=== PATIENT | male | born 1970 | race Caucasian/White ===

== ENCOUNTER → 2019-10-09 | Outpatient (REF) | payer OTHER ==
[2019-10-09 13:58] LABS: APPEARANCE, URINE HAZY (CLEAR); BACTERIA, URINE AUTO 1+ (NEGATIVE); BILIRUBIN, URINE AUTO NEGATIVE (NEGATIVE); BLOOD, URINE BLOOD NEGATIVE (NEGATIVE); CALCIUM OXALATE CRYSTALS SMALL; COLOR, URINE YELLOW (YELLOW); GLUCOSE, URINE (UA) AUTO 1+ mg/dL (NEGATIVE); KETONE, URINE AUTO NEGATIVE (NEGATIVE); LEUKOCYTE ESTERASE, URINE AUTO NEGATIVE (NEGATIVE); MUCUS, URINE SMALL (NEGATIVE); NITRITE, URINE AUTO NEGATIVE (NEGATIVE); PROTEIN, URINE AUTO NEGATIVE (NEGATIVE); RBC, URINE AUTO 3 /HPF (0-3); SPECIFIC GRAVITY URINE AUTO 1.021 (1.002-1.035); SQUAMOUS EPITHELIAL CELL UR AU 0 /HPF (0-6); WBC, URINE AUTO 1 /HPF (0-3)
== END ==
LOC: M SMT 13:03
PROVIDERS: ATTEND Nurse Practitioner Women's Health
DX: R31.9 Hematuria, unspecified (principal)
CPT/HCPCS: 81001; 87086; 88108; G0463

== ENCOUNTER → 2019-11-08 | Outpatient (REF) | payer OTHER | LOC: M SMT 13:01 | PROVIDERS: ATTEND Urology | DX: R31.9 Hematuria, unspecified (principal); R82.89 Other abnormal findings on cytological and histological examination of urine ==

== ENCOUNTER → 2020-12-10 | Outpatient (REF) ==
--- NOTE | 2020-12-10 13:29 | REP ---
INDICATION: DDD COMPARISON: None. TECHNIQUE: AP, lateral, bilateral oblique views of the left elbow. FINDINGS: No evidence for acute fracture or dislocation. Subtle periarticular irregularity along the articular surfaces of the proximal ulna and radial head are suggested. No further arthritic changes are identified. No effusion. IMPRESSION: Mild arthritic changes suggested. <Electronically signed by Nahum Quintanilla > 12/10/20 [id number]
--- NOTE | 2020-12-10 15:09 | REP ---
INDICATION: DDD COMPARISON: None. TECHNIQUE: AP and frog-lateral views of the right hip FINDINGS: Generalized age-related changes include subtle increased sclerosis to the acetabulum with minimal joint space narrowing. No further overt osteoarthritic or significant degenerative changes are appreciated. No evidence for acute or healed injury. Surrounding soft tissues are normal. IMPRESSION: Mild generalized age-related changes. <Electronically signed by Nahum Quintanilla > 12/10/20 [id number]
--- NOTE | 2020-12-10 15:59 | REP ---
INDICATION: DDD. COMPARISON: None. TECHNIQUE: AP and lateral views of the left forearm. FINDINGS: AP and latter views of the oral left forearm demonstrate normal bones, joints, and soft tissues. No fracture or subluxation is seen. No opaque foreign body noted. No erosive change or other evidence of arthropathy. IMPRESSION: Negative left forearm series. <Electronically signed by Hilario Higgins > 12/10/20 [id number]
== END ==
LOC: M RAD 10:54
PROVIDERS: ATTEND Internal Medicine
DX: M19.022 Primary osteoarthritis, left elbow (principal)

== ENCOUNTER → 2022-11-09 | Outpatient (REF) | LOC: M PLAIMG 12:02 | PROVIDERS: ATTEND Internal Medicine | DX: Z87.81 Personal history of (healed) traumatic fracture (principal) ==

== ENCOUNTER → 2023-01-12 | Outpatient (REF) | LOC: M PLAIMG 10:39 | PROVIDERS: ATTEND Internal Medicine | DX: M25.551 Pain in right hip (principal) ==

== ENCOUNTER → 2023-08-24 | Outpatient (REF) | LOC: M PLAIMG 14:23 | PROVIDERS: ATTEND Internal Medicine | DX: M47.817 Spondylosis without myelopathy or radiculopathy, lumbosacral region (principal) ==